=== PATIENT | male | born 1965 | race Caucasian/White ===

== ENCOUNTER → 2017-09-20 18:14 | Outpatient (REF) | payer MEDICARE, SELFPAY | LOC: LAB 18:14 | PROVIDERS: Visit Provider Urology | DX: N99.89 Other postprocedural complications and disorders of genitourinary system (principal) | CPT/HCPCS: 87086; 87088; 87186 ==

== ENCOUNTER → 2017-11-18 10:15 | Outpatient (CLI) | payer MEDICARE, SELFPAY ==
--- NOTE | 2017-11-18 10:23 | XR_ITS ---
XR KUB COMPARISON: KUB 10/19/2016 HISTORY: Known kidney stones TECHNIQUE: KUB FINDINGS: The solitary approximate 9 mm calculus is again seen overlying the midpole right kidney. A similar appearing trying shaped calculus measuring possibly 9 mm is seen overlying mid pole left kidney. Both of these are basically unchanged in size and overall appearance from previous exam. The bowel gas pattern is unremarkable. Again noted is mild dextroscoliotic curvature of the lumbar spine. IMPRESSION: Bilateral renal calculi basically stable and unchanged in size and location from previous exam
== END ==
PROVIDERS: PCP Family Medicine; Visit Provider Urology
DX: N20.0 Calculus of kidney (principal)
CPT/HCPCS: 74018

== ENCOUNTER → 2017-11-22 16:36 | Outpatient (REF) | payer MEDICARE, SELFPAY | LOC: LAB 16:36 | PROVIDERS: Visit Provider Urology | DX: N99.89 Other postprocedural complications and disorders of genitourinary system (principal) | CPT/HCPCS: 87086; 87088; 87186 ==

== ENCOUNTER → 2019-01-02 13:26 | Outpatient (CLI) | payer MEDICARE, SELFPAY ==
--- NOTE | 2019-01-02 13:39 | XR_ITS ---
XR KUB HISTORY: ITS.REASON: kidney stones ORDERING PHYSICIAN: Micheal Rowan MD PATIENT AGE: 53 years COMPARISON: 11/18/2017 FINDINGS: There are bilateral renal calculi present. There is an 11 mm stone overlying the lower pole the right kidney, a 15 mm stone overlying the upper pole the left kidney which is increased in size compared to the previous exam and a 4 mm stone overlying the lower pole the left kidney. No obvious ureteral calculi. There is lumbar curvature convex right. Mixed sclerotic/lucent areas present in the ilium on the left centrally unchanged IMPRESSION: Bilateral nephrolithiasis
== END ==
PROVIDERS: PCP Nurse Practitioner Family; Visit Provider Urology
DX: N20.0 Calculus of kidney (principal)
CPT/HCPCS: 74018; 87086; 87088; 87186

== ENCOUNTER → 2019-06-19 10:12 | Outpatient (CLI) | payer MEDICARE, SELFPAY ==
--- NOTE | 2019-06-19 10:18 | XR_ITS ---
PROCEDURE: XR KUB CLINICAL INDICATION: kidney stone COMPARISON: ABDPELW/O CT ABD PELVIS W/O CONTRAST from 10/29/2015 FINDINGS: There are bilateral renal calculi. There is a 10 mm stone overlying the mid aspect of the right kidney and a 12 mm stone overlying the upper pole of the left kidney. There is lumbar scoliosis convex right with degenerative changes in the lumbar spine and hips. There is a moderate amount of retained colonic feces. IMPRESSION: Bilateral nephrolithiasis Dictated by: Sree Page MD 06/19/2019 15:42 Electronically signed by Sree Page MD in [place] 06/19/2019 15:42
== END ==
PROVIDERS: PCP Family Medicine; Visit Provider Urology
DX: N20.0 Calculus of kidney (principal)
CPT/HCPCS: 74018; 87086

== ENCOUNTER → 2019-06-19 17:19 | Outpatient (CLI) | payer MEDICARE, SELFPAY | PROVIDERS: Visit Provider Urology | DX: N20.0 Calculus of kidney (principal) | CPT/HCPCS: 74018; 87086 ==

== ENCOUNTER → 2019-07-24 09:26 | Outpatient (CLI) | payer MEDICARE, SELFPAY ==
--- NOTE | 2019-07-24 09:33 | XR_ITS ---
PROCEDURE: XR KUB CLINICAL INDICATION: kidney stone COMPARISON: ABDPELW/O CT ABD PELVIS W/O CONTRAST from 10/29/2015 FINDINGS: Gas pattern-The bowel gas pattern is nonspecific. There is no bowel obstruction. Gas collection projects over the right inguinal region raising the question of aerated inguinal hernia. Air from infectious process in the soft tissues is not entirely excluded. There is some scleroses of the a right inferior pubic ramus with questionable chronic periosteal reaction. Dedicated pelvis exam could further evaluate. Chronic osteomyelitis or prior trauma could give this appearance. Multiple nonspecific radiolucencies are seen in the right acetabular region. There are pelvic calcifications bilaterally which are likely phleboliths. An ovoid 9 millimeter calcification overlying the right psoas muscle at the L3 level could represent a ureteral calculus.. No obvious renal calculi. IMPRESSION: Possible 9 millimeter right ureteral calculus. Nonspecific air collection in right inguinal region with some associated bony abnormalities. Follow-up should be considered. CT of the abdomen and pelvis may be useful for more definitive assessment. Dictated by: Vijay Martinez 07/24/2019 12:03 Electronically signed by Vijay Martinez in [place] 07/24/2019 12:03
== END ==
PROVIDERS: PCP Family Medicine; Visit Provider Urology
DX: N20.9 Urinary calculus, unspecified (principal)
CPT/HCPCS: 74018

== ENCOUNTER → 2020-01-10 12:16 | Outpatient (CLI) | payer MEDICARE, OTHER, SELFPAY ==
--- NOTE | 2020-01-10 12:25 | XR_ITS ---
PROCEDURE: XR KUB CLINICAL INDICATION: kidney stone COMPARISON: ABDPELW/O CT ABD PELVIS W/O CONTRAST from 10/29/2015 FINDINGS: There is a moderate amount of retained colonic feces which obscures the underlying kidneys. None the less, there is a calcification noted in the right mid abdominal region at 6 mm suggesting a renal stone. There are multiple pelvic calcifications including multiple small calcifications over the lower/central pelvic region which may be due to stones within the urinary bladder. There is lumbar scoliosis convex right. There is air density noted in the right inguinal region suggesting an inguinal hernia. IMPRESSION: 1. Right nephrolithiasis with multiple bladder stones suspected. 2. Constipation. 3. Right inguinal hernia Dictated by: Sree Page MD 01/10/2020 12:59 Electronically signed by Sree Page MD in [place] 01/10/2020 12:59
== END ==
PROVIDERS: PCP Family Medicine; Visit Provider Urology
DX: N20.0 Calculus of kidney (principal)
CPT/HCPCS: 74018

== ENCOUNTER → 2020-01-10 16:47 | Outpatient (CLI) | payer MEDICARE, SELFPAY | PROVIDERS: Visit Provider Urology | DX: N20.0 Calculus of kidney (principal) | CPT/HCPCS: 74018; 87086; 87088; 87186 ==

== ENCOUNTER → 2020-01-11 08:06 | Outpatient (CLI) | payer MEDICARE, SELFPAY ==
[2020-01-11 11:03] LABS: Coronavirus 19 IgG Antibody Negative (Negative); Coronavirus 19 IgM Antibody Negative (Negative)
== END ==
PROVIDERS: Visit Provider Urology
DX: Z01.818 Encounter for other preprocedural examination (principal); N20.0 Calculus of kidney; N31.9 Neuromuscular dysfunction of bladder, unspecified
CPT/HCPCS: 36415; 86328

== ENCOUNTER 2020-01-14 07:49 | Day surgery (SDC) | payer MEDICARE, SELFPAY ==
--- NOTE | 2020-01-10 13:56 | SUR.PREOP ---
01/10/2020 @ 4534--PHONE CALL MADE TO PATIENT. PATIENT UNDERSTANDS THAT LAB WORK AND COVID TESTING NEEDS TO BE COMPLETED @ 0800 ON 01/11/2020. PATIENT UNDERSTANDS IF LAB WORK AND COVID-19 TESTS ARE NOT COMPLETED BY 12PM ON THAT DATE, THE SURGERY SCHEDULED WILL BE CANCELLED AND RESCHEDULED FOR ANOTHER TIME.
[2020-01-11 10:36] VITALS: BMI 22.1
[2020-01-14 08:21] VITALS: BP 111/64; PULSE 66; RESP 18; TEMP 36.2; O2SAT 97
[2020-01-14 09:36] VITALS: BP 116/62; PULSE 66; RESP 18; TEMP 36.6; O2SAT 99
--- NOTE | 2020-01-14 13:29 | P.OP_ITS ---
Date of procedure: 01/14/20 Pre-op Diagnosis:: Difficulty catheterizing urethra/history of neurogenic bladder Post-op Diagnosis:: Neurogenic bladder/small bladder stones/no evidence of urethral stricture Procedure performed:: Cystoscopy with removal of small bladder stones Surgeon:: Darrell Velazquez MD Anesthesia: local Estimated blood loss (mL): 0 Clinical Note:: Patient is a 54-year-old white male with history of neurogenic bladder secondary to spinal cord injury 20 years ago. He catheterizes 4 times a day but states he has had some recent difficulty catheterizing in the sitting position. He can catheterize in the lying position. He states he has noticed some blood with catheterization recently. Operative findings:: No evidence of urethral stricture, bladder with diffuse trabeculation in the large capacity but no evidence of bladder tumor, prostate is not enlarged, several small bladder stones noted in the base of the bladder. Operative note:: Patient taken to the operating suite on the stretcher. He was prepped and draped in the standard surgical fashion on the stretcher in 2% lidocaine placed into the urethra and clamped. After 5 minutes the clamp removed and the flexible cystoscope introduced into the meatus. Passed in the bladder without difficulty. There is no evidence of urethral stricture prostate enlargement. The bladder showed some diffuse trabeculation and was noted to be of high capacity. There were a few small bladder stones in the base of the bladder. The ureteral orifices in their normal anatomic position with clear reflux of urine. A 1.9 Citizen [place] nitinol stone basket passed through the scope and 3 of the stones were removed with use of the basket. Several smaller 1 mm stones were left in. Scope then removed. We then set the patient up and I catheterized the patient myself in the sitting position and there is no evidence of any resistance and he was able to be catheterized without difficulty. I reassured him there is no evidence of any obstruction, blockage or stricture. We discussed trying to put the penis on the little stretch to straighten out the urethra. Recent urine culture showed 80-90,000 E. coli which was resistant to the Macrobid that was given last week. It is sensitive to the third-generation cephalosporins and a prescription for cefdinir given today. Condition: stable Disposition: same day Specimens:: Bladder stones Complications:: None
[2020-01-25 18:28] LABS: Ca oxalate dihydrate 80%; Composition SEE BELOW:; Specimen Type NOT PROVIDED
[2020-01-25 18:29] LABS: Photo TO FOLLOW
== END 2020-01-14 09:55 | disposition home or self-care (01) ==
LOC: OUTP 07:51
PROVIDERS: PCP Family Medicine; Visit Provider Urology
PROC: (CPT 52310; principal; 2020-01-14 09:00)
DX: N31.9 Neuromuscular dysfunction of bladder, unspecified (principal); N21.0 Calculus in bladder; Z88.1 Allergy status to other antibiotic agents; Z88.0 Allergy status to penicillin; Z91.018 Allergy to other foods; Z79.899 Other long term (current) drug therapy; Z90.49 Acquired absence of other specified parts of digestive tract
CPT/HCPCS: 52310; 82370

== ENCOUNTER → 2020-07-15 14:50 | Outpatient (CLI) | payer MEDICARE, SELFPAY | PROVIDERS: Visit Provider Urology | DX: N39.0 Urinary tract infection, site not specified (principal) | CPT/HCPCS: 87086; 87088; 87186 ==

== ENCOUNTER → 2020-08-01 16:00 | Outpatient (CLI) | payer MEDICARE, SELFPAY | PROVIDERS: Visit Provider Urology | DX: N20.9 Urinary calculus, unspecified (principal) | CPT/HCPCS: 87086; 87088; 87186 ==

== ENCOUNTER → 2020-08-05 11:21 | Outpatient (CLI) | payer MEDICARE, SELFPAY ==
--- NOTE | 2020-08-05 11:25 | XR_ITS ---
PROCEDURE: XR KUB CLINICAL INDICATION: kidney stone Follow-up kidney stone, flank pain COMPARISON: CT ABDPELW/O CT ABD PELVIS W/O CONTRAST from 10/29/2015 CR XR KUB from 01/10/2020 FINDINGS: Mild lumbar scoliosis convex right. Moderate amount of retained colonic feces. Postsurgical changes lower thoracic spine with inter pedicular screws at T11 and T10 there is a 5 mm calcific density to the right L3 and could be due to a stone within the lower pole of the right kidney IMPRESSION: As above, right nephrolithiasis Dictated by: Sree Page MD 08/05/2020 16:08 Sree Page MD in [place] 08/05/2020 16:08
== END ==
PROVIDERS: PCP Family Medicine; Visit Provider Urology
DX: N20.0 Calculus of kidney (principal)
CPT/HCPCS: 74018

== ENCOUNTER → 2020-08-07 09:53 | Outpatient (CLI) | payer MEDICARE, SELFPAY ==
--- NOTE | 2020-08-07 10:16 | HMH.PHACONS ---
- Pharmacy Consult Date: 08/07/20 Time: 10:17 Referring provider: DR. DENNY Reason for Consult:: TOBRAMYCIN CONSULT Allergies and ADEs:: Allergies Allergy/AdvReac Type Severity Reaction Status Date / Time ciprofloxacin Allergy Intermediate I-RASH Verified 08/05/20 12:01 floxacillin Allergy Intermediate I-RASH Verified 08/05/20 12:01 gentamicin [Gentamicin] Allergy Intermediate I-RASH Verified 08/05/20 12:01 ofloxacin Allergy Intermediate I-RASH Verified 08/05/20 12:01 COCONUT Allergy Intermediate I-RASH Uncoded 08/05/20 10:51 Home Medications:: Home Medications Medication Instructions Recorded Confirmed Type ascorbic acid (vitamin C) 500 mg 500 mg PO DAILY 09/20/17 08/05/20 History capsule clonazepam 1 mg tablet 1 mg PO QHS 09/20/17 08/05/20 History oxybutynin chloride 5 mg tablet 5 mg PO DAILY 09/20/17 08/05/20 History quetiapine 25 mg tablet 25 mg PO BID 09/20/17 08/05/20 History sertraline 100 mg tablet 150 mg PO Q24H 09/20/17 08/05/20 History trazodone 50 mg tablet 50 mg PO QHS PRN 09/20/17 08/05/20 History gabapentin 300 mg capsule 300 mg PO DAILY 07/18/18 08/05/20 History promethazine 25 mg tablet 25 mg PO Q6H PRN 07/18/18 08/05/20 History doxycycline hyclate 100 mg capsule 100 mg PO TID 06/19/19 08/05/20 History silver sulfadiazine 1 % topical 1 applic TOPICAL BID PRN 06/19/19 08/05/20 History cream Height: 1.7 m Weight: 59.24 kg Medical History: Reports:: Hypertension, Kidney Stones, Urinary Tract Infection Denies:: Cancer, Diabetes Mellitus Type 1, Diabetes Mellitus Type 2, Internal Pacemaker, MRSA, Seizures Assessment and Plan - Assessment and plan all Dx Assessment and Plan for all problems:: BASED ON PATIENT FACTORS, RECOMMEND TOBRAMYCIN 320MG IV EVERY 24 HOURS. WILL OBTAIN TOBRAMYCIN PEAK LEVEL ONE HOUR POST INFUSION AND ADJUST DOSE APPROPRIATE AT THAT POINT. PHARMACY WILL CONTINUE TO MONITOR. -RAJAN HUTSON PHARMD
[2020-08-07 10:32] LABS: Chloride 100 mmol/L (98-107)
[2020-08-07 10:33] LABS: Potassium 3.7 mmoL/L (3.5-5.1); Sodium 138 mmol/L (136-145)
[2020-08-07 10:35] LABS: Blood Urea Nitrogen 25 mg/dl (9-20); Estimated Glomerular Filt Rate 100 ml/min (>60); GFR (African American) 121 ML/MIN (>60)
[2020-08-07 10:36] LABS: Anion Gap 10.7 mEq/L (5-15); Calcium 9.3 mg/dl (8.4-10.2); Carbon Dioxide 31 mmol/L (22.0-30.0); Glucose 88 mg/dl (74-100)
[2020-08-07 10:50] VITALS: BP 136/78; PULSE 82; RESP 16; TEMP 36.8; O2SAT 98
[2020-08-07 13:20] VITALS: BP 167/89; PULSE 80; RESP 16; TEMP 36.8; O2SAT 98
[2020-08-07 14:08] LABS: Tobramycin,Peak 17.1 ug/ml (5.0-12.0)
== END ==
PROVIDERS: PCP Family Medicine; Visit Provider Urology
DX: N39.0 Urinary tract infection, site not specified (principal); N20.0 Calculus of kidney
CPT/HCPCS: 80048; 80200; 96365; G0463

== ENCOUNTER 2020-08-08 09:44 | Outpatient (CLI) | payer MEDICARE, SELFPAY ==
[2020-08-08 09:57] VITALS: BMI 20.5
[2020-08-08 10:31] LABS: Tobramycin,Trough 1.1 ug/ml (0-2.0)
--- NOTE | 2020-08-08 10:40 | PC.NURSE ---
V/S= 105/68 (SITTING, RT ARM), 73, 16, 97.7 AX
--- NOTE | 2020-08-08 10:41 | HMH.PHACONS ---
- Pharmacy Consult Date: 08/08/20 Time: 10:41 Referring provider: DR. DENNY Reason for Consult:: TOBRAMYCIN LEVELS Allergies and ADEs:: Allergies Allergy/AdvReac Type Severity Reaction Status Date / Time ciprofloxacin Allergy Intermediate I-RASH Verified 08/05/20 12:01 floxacillin Allergy Intermediate I-RASH Verified 08/05/20 12:01 gentamicin [Gentamicin] Allergy Intermediate I-RASH Verified 08/05/20 12:01 ofloxacin Allergy Intermediate I-RASH Verified 08/05/20 12:01 COCONUT Allergy Intermediate I-RASH Uncoded 08/05/20 10:51 Home Medications:: Home Medications Medication Instructions Recorded Confirmed Type ascorbic acid (vitamin C) 500 mg 500 mg PO DAILY 09/20/17 08/05/20 History capsule clonazepam 1 mg tablet 1 mg PO QHS 09/20/17 08/05/20 History oxybutynin chloride 5 mg tablet 5 mg PO DAILY 09/20/17 08/05/20 History quetiapine 25 mg tablet 25 mg PO BID 09/20/17 08/05/20 History sertraline 100 mg tablet 150 mg PO Q24H 09/20/17 08/05/20 History trazodone 50 mg tablet 50 mg PO QHS PRN 09/20/17 08/05/20 History gabapentin 300 mg capsule 300 mg PO DAILY 07/18/18 08/05/20 History promethazine 25 mg tablet 25 mg PO Q6H PRN 07/18/18 08/05/20 History doxycycline hyclate 100 mg capsule 100 mg PO TID 06/19/19 08/05/20 History silver sulfadiazine 1 % topical 1 applic TOPICAL BID PRN 06/19/19 08/05/20 History cream Height: 1.7 m Weight: 59.24 kg Laboratory Results:: Laboratory Results - last 24 hr 08/08/20 10:10: Tobramycin Trough 1.1 Medical History: Reports:: Hypertension, Kidney Stones, Urinary Tract Infection Denies:: Cancer, Diabetes Mellitus Type 1, Diabetes Mellitus Type 2, Internal Pacemaker, MRSA, Seizures Assessment and Plan - Assessment and plan all Dx Assessment and Plan for all problems:: TOBRAMYCIN PEAK LEVEL: 17.1 MCG/ML TOBRAMYCIN TROUGH LEVEL: 1.1 MCG/ML BASED ON LEVELS AND PATIENT FACTORS, RECOMMEND DECREASING PATIENT'S DOSE SLIGHTLY TO TOBRAMYCIN 300 MG IV Q24H. WILL CHECK ANOTHER TROUGH LEVEL ON TUESDAY.
[2020-08-08 11:03] VITALS: BP 105/68; PULSE 73; RESP 16; TEMP 36.5
== END 2020-08-08 11:55 | disposition home or self-care (01) ==
LOC: INF 09:45
PROVIDERS: PCP Family Medicine; Visit Provider Urology
DX: N39.0 Urinary tract infection, site not specified (principal)
CPT/HCPCS: 80200; 96365; 96372; 96374

== ENCOUNTER → 2020-08-09 09:12 | Outpatient (CLI) | payer MEDICARE, SELFPAY ==
[2020-08-09 09:35] VITALS: BP 95/78; PULSE 98; RESP 18; TEMP 36.4; O2SAT 96
--- NOTE | 2020-08-09 09:45 | PC.NURSE ---
IV ALREADY IN PLACE IN (L) AC, IV IS PATENT WITH GOOD BLOOD RETURN.
[2020-08-09 10:14] LABS: Coronavirus 19 IgG Antibody Negative (Negative); Coronavirus 19 IgM Antibody Negative (Negative)
== END ==
PROVIDERS: Visit Provider Urology
DX: N31.9 Neuromuscular dysfunction of bladder, unspecified (principal)
CPT/HCPCS: 36415; 86328

== ENCOUNTER → 2020-08-10 13:09 | Outpatient (CLI) | payer MEDICARE, SELFPAY ==
[2020-08-10 13:25] VITALS: BP 125/68; PULSE 79; RESP 14; TEMP 36.5; O2SAT 100; BMI 20.3
[2020-08-10 14:20] LABS: Tobramycin,Trough 0.7 ug/ml (0-2.0)
--- NOTE | 2020-08-10 14:29 | HMH.PHACONS ---
- Pharmacy Consult Date: 08/10/20 Time: 14:29 Referring provider: DR. DENNY Reason for Consult:: TOBRAMYCIN TROUGH LEVEL Allergies and ADEs:: Allergies Allergy/AdvReac Type Severity Reaction Status Date / Time ciprofloxacin Allergy Intermediate I-RASH Verified 08/05/20 12:01 floxacillin Allergy Intermediate I-RASH Verified 08/05/20 12:01 gentamicin [Gentamicin] Allergy Intermediate I-RASH Verified 08/05/20 12:01 ofloxacin Allergy Intermediate I-RASH Verified 08/05/20 12:01 COCONUT Allergy Intermediate I-RASH Uncoded 08/05/20 10:51 Home Medications:: Home Medications Medication Instructions Recorded Confirmed Type ascorbic acid (vitamin C) 500 mg 500 mg PO DAILY 09/20/17 08/05/20 History capsule clonazepam 1 mg tablet 1 mg PO QHS 09/20/17 08/05/20 History oxybutynin chloride 5 mg tablet 5 mg PO DAILY 09/20/17 08/05/20 History quetiapine 25 mg tablet 25 mg PO BID 09/20/17 08/05/20 History sertraline 100 mg tablet 150 mg PO Q24H 09/20/17 08/05/20 History trazodone 50 mg tablet 50 mg PO QHS PRN 09/20/17 08/05/20 History gabapentin 300 mg capsule 300 mg PO DAILY 07/18/18 08/05/20 History promethazine 25 mg tablet 25 mg PO Q6H PRN 07/18/18 08/05/20 History doxycycline hyclate 100 mg capsule 100 mg PO TID 06/19/19 08/05/20 History silver sulfadiazine 1 % topical 1 applic TOPICAL BID PRN 06/19/19 08/05/20 History cream Height: 1.7 m Weight: 58.967 kg Laboratory Results:: Laboratory Results - last 24 hr 08/10/20 13:34: Tobramycin Trough 0.7 Medical History: Reports:: Hypertension, Kidney Stones, Urinary Tract Infection Denies:: Cancer, Diabetes Mellitus Type 1, Diabetes Mellitus Type 2, Internal Pacemaker, MRSA, Seizures Assessment and Plan - Assessment and plan all Dx Assessment and Plan for all problems:: BASED ON TOBRAMYCIN TROUGH LEVEL OF 0.7 MCG/ML, RECOMMEND CONTINUING TOBRAMYCIN 300 MG IV Q24H. PHARMACY WILL CONTINUE TO MONITOR DAILY AND ADJUST APPROPRIATE.
[2020-08-10 15:50] VITALS: BP 114/66; PULSE 78; RESP 14; TEMP 36.4; O2SAT 99
== END ==
PROVIDERS: PCP Family Medicine; Visit Provider Urology
DX: N39.0 Urinary tract infection, site not specified (principal)
CPT/HCPCS: 80200; 96365

== ENCOUNTER 2020-08-11 08:02 | Day surgery (SDC) | payer MEDICARE, SELFPAY ==
[2020-08-05 11:54] VITALS: BMI 20.3
[2020-08-11 08:25] VITALS: BP 98/71; PULSE 78; RESP 16; TEMP 36.1; O2SAT 100
--- NOTE | 2020-08-11 08:31 | SUR.PREOP ---
IV in place in left forearm from monday 08/06
[2020-08-11 09:19] VITALS: BP 120/70; PULSE 77; RESP 18; TEMP 36.6; O2SAT 100
[2020-08-11 10:32] VITALS: BP 139/73; PULSE 82; RESP 18; TEMP 36.8; O2SAT 100
--- NOTE | 2020-08-11 10:40 | HMH.OPNOTE ---
Date of procedure: 08/11/20 Pre-op Diagnosis:: Recurring urinary tract infections/difficulty catheterizing/history of neurogenic bladder Post-op Diagnosis:: Neurogenic bladder/wide caliber urethral stenosis/small bladder stones Procedure performed:: Cystoscopy with urethral dilation and bladder irrigation Surgeon:: Darrell Velazquez MD Anesthesia: local Estimated blood loss (mL): 0 Clinical Note:: Patient is a 55-year-old white male with history of neurogenic bladder secondary to paraplegia has had persistent malodorous urine and recent urine culture shows a multi resistant urinary tract infection. He has also had some difficulty catheterizing and presents for cystoscopic evaluation to evaluate possible stricture disease and for source of recurrent UTIs Operative findings:: Patient with a wide caliber urethral narrowing as well as a small bladder stones, there is also a prominent ejaculatory duct could be causing some obstruction with catheterizing Operative note:: Patient taken to the cystoscopy suite after informed consent was obtained. On the stretcher he was prepped and draped in the standard surgical fashion and 2% lidocaine placed into the urethra. After 5 minutes the clamp was removed and the flexible cystoscope introduced into the urethral meatus. The scope was passed to the urethral bulb gnosis by the amount of stenosis there. There is also evidence of a prominent ejaculatory duct. The bladder was entered and examined in a systematic fashion. There was some mild diffuse trabeculation but no cellules or diverticula. There is no evidence of mucosal abnormalities. A few small bladder stones were present. The ureteral orifices in their normal anatomic position with clear reflux of urine. The cystoscope then removed and the urethra dilated with a 22 and 24 [place] Pete sounds. A 20 [place] coud? tip catheter then passed into the urethra and irrigation of the bladder was performed trying to remove the small bladder stones but we were unsuccessful. The catheter then removed. Patient tolerated the procedure well there are no complications. We discussed the findings today and he will return as scheduled. He does state that he is able to catheterize better using the coud? tip catheter and it is possible that the previous catheters were getting hung up on the underside of the ejaculatory duct. Condition: stable Disposition: same day Specimens:: None Complications:: None
== END 2020-08-11 10:32 | disposition home or self-care (01) ==
LOC: OUTP 08:03
PROVIDERS: PCP Family Medicine; Visit Provider Urology
PROC: 0TJB8ZZ Inspection of Bladder, Via Natural or Artificial Opening Endoscopic (ICD-10-PCS; CPT 52000; principal; 2020-08-11 08:30)
DX: N50.89 Other specified disorders of the male genital organs; N21.0 Calculus in bladder; Z87.440 Personal history of urinary (tract) infections; Z87.448 Personal history of other diseases of urinary system; G82.20 Paraplegia, unspecified; R82.998 Other abnormal findings in urine; I10 Essential (primary) hypertension; Z87.442 Personal history of urinary calculi; Z88.1 Allergy status to other antibiotic agents; Z79.899 Other long term (current) drug therapy
CPT/HCPCS: 52281

== ENCOUNTER 2020-08-12 10:09 | Outpatient (CLI) | payer MEDICARE, SELFPAY ==
[2020-08-12 10:20] VITALS: BP 117/73; PULSE 68; RESP 18; TEMP 36.6; O2SAT 98
[2020-08-12 10:42] VITALS: BP 111/76; PULSE 71; RESP 18; O2SAT 98
[2020-08-12 11:12] VITALS: BP 107/74; PULSE 69; RESP 18; O2SAT 97
[2020-08-12 11:42] VITALS: BP 119/78; PULSE 72; RESP 18; O2SAT 98
[2020-08-12 11:55] VITALS: BP 114/72; PULSE 67; RESP 18; O2SAT 98
== END 2020-08-12 11:55 | disposition home or self-care (01) ==
LOC: INF 10:09
PROVIDERS: Visit Provider Urology
DX: N39.0 Urinary tract infection, site not specified (principal)
CPT/HCPCS: 96365

== ENCOUNTER 2020-08-13 09:57 | Outpatient (CLI) | payer MEDICARE, SELFPAY ==
[2020-08-13 10:03] VITALS: BP 121/81; PULSE 94; RESP 20; TEMP 36.4; O2SAT 98
[2020-08-13 10:35] VITALS: BP 126/84; PULSE 94; RESP 20; O2SAT 99
[2020-08-13 11:05] VITALS: BP 120/86; PULSE 91; RESP 20; O2SAT 99
[2020-08-13 11:35] VITALS: BP 123/81; PULSE 90; RESP 20; O2SAT 98
[2020-08-13 11:48] VITALS: BP 121/56; PULSE 88; RESP 20; O2SAT 98
== END 2020-08-13 11:49 | disposition home or self-care (01) ==
LOC: INF 09:57
PROVIDERS: Visit Provider Urology
DX: N39.0 Urinary tract infection, site not specified (principal); N20.0 Calculus of kidney; N31.9 Neuromuscular dysfunction of bladder, unspecified
CPT/HCPCS: 96365

== ENCOUNTER → 2020-12-16 16:26 | Outpatient (CLI) | payer MEDICARE, SELFPAY | PROVIDERS: Visit Provider Urology | DX: N39.0 Urinary tract infection, site not specified (principal) | CPT/HCPCS: 87086; 87088; 87186 ==

== ENCOUNTER → 2021-02-24 15:52 | Outpatient (CLI) | payer MEDICARE, SELFPAY | PROVIDERS: Visit Provider Urology | DX: N39.0 Urinary tract infection, site not specified (principal) | CPT/HCPCS: 87086; 87088; 87186 ==

== ENCOUNTER → 2021-06-02 14:47 | Outpatient (CLI) | payer MEDICARE, SELFPAY | PROVIDERS: Visit Provider Urology | DX: N20.9 Urinary calculus, unspecified (principal) | CPT/HCPCS: 87086; 87088; 87186 ==

== ENCOUNTER → 2022-02-25 14:13 | Outpatient (CLI) | payer MEDICARE, SELFPAY | PROVIDERS: Visit Provider Urology | DX: N20.9 Urinary calculus, unspecified (principal); B96.29 Other Escherichia coli [E. coli] as the cause of diseases classified elsewhere | CPT/HCPCS: 87086; 87088; 87186 ==

== ENCOUNTER → 2022-03-26 13:36 | Outpatient (CLI) | payer OTHER, MEDICARE, SELFPAY ==
--- NOTE | 2022-03-26 13:47 | XR_ITS ---
FINAL REPORT CLINICAL HISTORY: hematuria COMPARISON: 01/10/2020 FINDINGS: A single view of the abdomen was obtained. There is a nonobstructive bowel gas pattern. There are no abnormally dilated loops of small bowel. There is a large amount of retained stool. There is a probable, 5 mm right renal stone, stable from prior exam. Dextroscoliosis and degenerative changes are noted of the spine. IMPRESSION: 1. Nonobstructive bowel gas pattern. 2. Large amount of retained stool. 3. Probable, right renal stone, stable. Reviewed, Interpreted and Dictated by Luigi Lu III, MD Transcribed by Anne Pedraza Authenticated and [facility]
== END ==
PROVIDERS: PCP Nurse Practitioner Family; Visit Provider Urology
DX: R31.9 Hematuria, unspecified (principal); N39.0 Urinary tract infection, site not specified; B95.2 Enterococcus as the cause of diseases classified elsewhere
CPT/HCPCS: 74018; 87086; 87088; 87186

== ENCOUNTER → 2022-03-26 16:17 | Outpatient (CLI) | payer MEDICARE, OTHER, SELFPAY | PROVIDERS: Visit Provider Urology | DX: N20.0 Calculus of kidney (principal) ==

== ENCOUNTER → 2022-03-31 08:49 | Outpatient (CLI) | payer MEDICARE, OTHER, SELFPAY ==
[2022-03-31 09:44] LABS: Albumin Level 3.7 g/dl (3.5-5.0); Chloride 106 mmol/L (98-107); Potassium 4.2 mmoL/L (3.5-5.1); Sodium 140 mmol/L (136-145)
[2022-03-31 09:46] LABS: Blood Urea Nitrogen 20 mg/dl (9-20); Estimated Glomerular Filt Rate 69 ml/min (>60); GFR (African American) 83 ML/MIN (>60)
[2022-03-31 09:47] LABS: Anion Gap 11.2 mEq/L (5-15); Calcium 8.9 mg/dl (8.4-10.2); Carbon Dioxide 27 mmol/L (22.0-30.0); Glucose 86 mg/dl (74-100); Phosphorous 3.5 mg/dl (2.5-4.5)
== END ==
PROVIDERS: PCP Nurse Practitioner Family; Visit Provider Nurse Practitioner Family
DX: N30.00 Acute cystitis without hematuria (principal)
CPT/HCPCS: 36415; 80069

== ENCOUNTER 2022-04-02 12:29 | Outpatient (CLI) | payer OTHER, MEDICARE, SELFPAY ==
[2022-04-02 12:29] VITALS: BMI 23.1
--- NOTE | 2022-04-02 13:15 | XR_ITS ---
FINAL REPORT CLINICAL HISTORY: PICC LINE placement FINDINGS: A single portable view of the chest was obtained. There is a left subclavian PICC line with tip in the mid SVC. The heart size and pulmonary vascularity are within normal limits. The mediastinum is within normal limits. No acute pulmonary abnormality is identified. There are postoperative changes of the thoracic spine with spinal rods. IMPRESSION: No active cardiopulmonary disease. Left subclavian PICC line with tip in the mid SVC. Reviewed, Interpreted and Dictated by Luigi Lu III, MD Transcribed by January Delacruz Authenticated and [facility]
[2022-04-02 13:50] VITALS: BP 119/69; PULSE 68; RESP 20; TEMP 36.9
[2022-04-02 14:55] VITALS: BP 122/76; PULSE 90; RESP 20; TEMP 36.9; O2SAT 95
--- NOTE | 2022-04-02 15:10 | HMH.PHACONS ---
- Pharmacy Consult Date: 04/02/22 Time: 15:10 Referring provider: DR. JOSEPH Reason for Consult:: TOBRAMYCIN DOSING Allergies and ADEs:: Allergies Allergy/AdvReac Type Severity Reaction Status Date / Time ciprofloxacin Allergy Intermediate I-RASH Verified 03/26/22 13:19 floxacillin Allergy Intermediate I-RASH Verified 03/26/22 13:19 gentamicin [Gentamicin] Allergy Intermediate I-RASH Verified 03/26/22 13:19 ofloxacin Allergy Intermediate I-RASH Verified 03/26/22 13:19 COCONUT Allergy Intermediate I-RASH Uncoded 03/26/22 13:19 Home Medications:: Home Medications Medication Instructions Recorded Confirmed Type ascorbic acid (vitamin C) 500 mg 500 mg PO DAILY 09/20/17 03/26/22 History capsule clonazepam 1 mg tablet 1 mg PO QHS 09/20/17 03/26/22 History oxybutynin chloride 5 mg tablet 5 mg PO DAILY 09/20/17 03/26/22 History quetiapine 25 mg tablet 25 mg PO BID 09/20/17 03/26/22 History sertraline 100 mg tablet 150 mg PO Q24H 09/20/17 03/26/22 History trazodone 50 mg tablet 50 mg PO QHS PRN 09/20/17 03/26/22 History gabapentin 300 mg capsule 300 mg PO DAILY 07/18/18 03/26/22 History promethazine 25 mg tablet 25 mg PO Q6H PRN 07/18/18 03/26/22 History doxycycline hyclate 100 mg capsule 100 mg PO TID 06/19/19 03/26/22 History silver sulfadiazine 1 % topical 1 applic TOPICAL BID PRN 06/19/19 03/26/22 History cream nitrofurantoin 100 mg PO BID 10 Days #20 cap 02/25/22 03/26/22 Rx monohydrate/macrocrystals 100 mg capsule cefdinir 300 mg capsule 300 mg PO BID #14 cap 03/19/22 03/26/22 Rx Height: 1.7 m Weight: 67.132 kg Medical History: Reports:: Hypertension, Kidney Stones, Renal Disease, Urinary Tract Infection Denies:: Cancer, Diabetes Mellitus Type 1, Diabetes Mellitus Type 2, Internal Pacemaker, MRSA, Seizures Assessment and Plan - Assessment and plan all Dx Assessment and Plan for all problems:: Age: 57 yo Serum creatinine: 1.1 mg/dL Height: 67.0 Inches Weight (kg): 67 Assessment: IBW (kg): 66.10 Dosing wt(kg): 66.1 Estimated Creatinine clearance (ml/min): 69.3 CRCL method: Cockcroft and Gault using ibw(default). Drug selected: Tobramycin Loading dose (mg): 0 Vd (liters): 19.8 (factor used: 0.3 L/kg) Elie (hr-1): 0.210 Half life (hrs): 3.30 Recommended dose: 320 mg Interval: 24 hrs Infusion time (hrs): 1 Predicted peak (mcg/mL): 14.7 Predicted trough (mcg/mL): 0.12 Recommendations: Give Tobramycin 320 mg q 24 hrs with an expected Cpeak of 14.7 mcg/ml and an expected Ctrough of 0.12 mcg/ml. TOBRAMYCIN PEAK TODAY AND TROUGH TOMORROW PRIOR TO DOSE. Thank you for the consult.
[2022-04-02 15:30] VITALS: BP 120/74; PULSE 68; RESP 20
[2022-04-02 16:30] VITALS: BP 118/74; PULSE 68
[2022-04-02 16:40] LABS: Anion Gap 11.6 mEq/L (5-15); Blood Urea Nitrogen 22 mg/dl (9-20); Calcium 8.7 mg/dl (8.4-10.2); Carbon Dioxide 25 mmol/L (22.0-30.0); Chloride 111 mmol/L (98-107); Creatinine Clearance Estimated 86 mL/min (50-200); Estimated Glomerular Filt Rate 87 ml/min (>60); GFR (African American) 105 ML/MIN (>60); Glucose 110 mg/dl (74-100); Potassium 4.6 mmoL/L (3.5-5.1); Sodium 143 mmol/L (136-145)
[2022-04-02 17:26] LABS: Tobramycin,Peak 19.4 ug/ml (5.0-12.0)
== END 2022-04-02 16:31 | disposition home or self-care (01) ==
LOC: INF 12:32
PROVIDERS: PCP Nurse Practitioner Family; Visit Provider Family Medicine
DX: Z45.2 Encounter for adjustment and management of vascular access device; N30.00 Acute cystitis without hematuria
CPT/HCPCS: 36410; 36569; 71045; 80048; 80200; 96365; C1751

== ENCOUNTER → 2022-04-03 13:00 | Outpatient (CLI) | payer OTHER, MEDICARE, SELFPAY ==
[2022-04-03 13:23] VITALS: BP 152/75; PULSE 73; RESP 20; TEMP 36.9; O2SAT 99
[2022-04-03 13:43] LABS: Tobramycin,Trough 1.4 ug/ml (0-2.0)
== END ==
PROVIDERS: Family Medicine; PCP Nurse Practitioner Family; Visit Provider Nurse Practitioner Family
DX: N39.0 Urinary tract infection, site not specified (principal)
CPT/HCPCS: 80200; 96365; G0463

== ENCOUNTER → 2022-04-04 13:15 | Outpatient (CLI) | payer OTHER, MEDICARE, SELFPAY ==
[2022-04-04 15:05] VITALS: BP 142/72; PULSE 79; RESP 18; O2SAT 100
[2022-04-04 15:10] VITALS: BP 142/72; PULSE 79; RESP 18; O2SAT 100
== END ==
PROVIDERS: PCP Nurse Practitioner Family; Visit Provider Nurse Practitioner Family
DX: N39.0 Urinary tract infection, site not specified (principal); Z45.2 Encounter for adjustment and management of vascular access device
CPT/HCPCS: 96365

== ENCOUNTER 2022-04-05 12:42 | Outpatient (CLI) | payer OTHER, MEDICARE, SELFPAY ==
[2022-04-05 12:51] VITALS: BMI 21.8
[2022-04-05 13:21] VITALS: BP 123/72; PULSE 73; RESP 18; TEMP 36.3; O2SAT 100
[2022-04-05 14:15] VITALS: BP 110/68; PULSE 72; RESP 18; O2SAT 98
== END 2022-04-05 14:15 | disposition home or self-care (01) ==
LOC: INF 12:43
PROVIDERS: PCP Nurse Practitioner Family; Visit Provider Nurse Practitioner Family
DX: B95.2 Enterococcus as the cause of diseases classified elsewhere (principal); N30.00 Acute cystitis without hematuria; Z45.2 Encounter for adjustment and management of vascular access device
CPT/HCPCS: 96365

== ENCOUNTER 2022-04-06 12:56 | Outpatient (CLI) | payer OTHER, MEDICARE, SELFPAY ==
[2022-04-06 13:05] VITALS: BMI 22.2
[2022-04-06 13:27] LABS: Anion Gap 10.2 mEq/L (5-15); Blood Urea Nitrogen 14 mg/dl (9-20); Calcium 8.5 mg/dl (8.4-10.2); Carbon Dioxide 27 mmol/L (22.0-30.0); Chloride 108 mmol/L (98-107); Creatinine Clearance Estimated 80 mL/min (50-200); Estimated Glomerular Filt Rate 87 ml/min (>60); GFR (African American) 105 ML/MIN (>60); Glucose 103 mg/dl (74-100); Potassium 4.2 mmoL/L (3.5-5.1); Sodium 141 mmol/L (136-145)
[2022-04-06 13:32] LABS: Tobramycin,Trough 1.6 ug/ml (0-2.0)
--- NOTE | 2022-04-06 13:51 | HMH.PHACONS ---
- Pharmacy Consult Date: 04/06/22 Time: 13:52 Referring provider: DR. JOSEPH Reason for Consult:: TOBRAMYCIN TROUGH AND DOSE CHANGE Allergies and ADEs:: Allergies Allergy/AdvReac Type Severity Reaction Status Date / Time ciprofloxacin Allergy Intermediate I-RASH Verified 03/26/22 13:19 floxacillin Allergy Intermediate I-RASH Verified 03/26/22 13:19 gentamicin [Gentamicin] Allergy Intermediate I-RASH Verified 03/26/22 13:19 ofloxacin Allergy Intermediate I-RASH Verified 03/26/22 13:19 COCONUT Allergy Intermediate I-RASH Uncoded 03/26/22 13:19 Home Medications:: Home Medications Medication Instructions Recorded Confirmed Type ascorbic acid (vitamin C) 500 mg 500 mg PO DAILY 09/20/17 04/05/22 History capsule clonazepam 1 mg tablet 1 mg PO QHS 09/20/17 04/05/22 History oxybutynin chloride 5 mg tablet 5 mg PO DAILY 09/20/17 04/05/22 History quetiapine 25 mg tablet 25 mg PO BID 09/20/17 04/05/22 History sertraline 100 mg tablet 150 mg PO Q24H 09/20/17 04/05/22 History trazodone 50 mg tablet 50 mg PO QHS PRN 09/20/17 03/26/22 History gabapentin 300 mg capsule 300 mg PO DAILY 07/18/18 04/05/22 History promethazine 25 mg tablet 25 mg PO Q6H PRN 07/18/18 03/26/22 History doxycycline hyclate 100 mg capsule 100 mg PO TID 06/19/19 04/05/22 History silver sulfadiazine 1 % topical 1 applic TOPICAL BID PRN 06/19/19 03/26/22 History cream Cefdinir [Omnicef 300mg Capsule] 300 mg PO BID 04/05/22 04/05/22 History Nitrofurantoin Monohyd/M-Cryst 100 mg PO BID 04/05/22 04/05/22 History [Nitrofurantoin [place]-Mcr 100 mg] Height: 1.68 m Weight: 62.596 kg Laboratory Results:: Laboratory Results - last 24 hr 04/06/22 13:15: Sodium 141, Potassium 4.2, Chloride 108 H, Carbon Dioxide 27, Anion Gap 10.2, BUN 14, Creatinine 0.90, Estimated Creat Clear 80, Estimated GFR 87, Est GFR ( Amer) 105, Glucose 103 H, Calcium 8.5 04/06/22 13:15: Tobramycin Trough 1.6 Medical History: Reports:: Hypertension, Kidney Stones, Renal Disease, Urinary Tract Infection Denies:: Cancer, Diabetes Mellitus Type 1, Diabetes Mellitus Type 2, Internal Pacemaker, MRSA, Seizures Assessment and Plan - Assessment and plan all Dx Assessment and Plan for all problems:: Pharmacokinetic dosing service Objective: Patient: Floor: Age: 57 yo Serum creatinine: 0.90 mg/dL Height: 66.1 Inches Weight (kg): 62.6 Assessment: IBW (kg): 64.03 Dosing wt(kg): 62.6 Estimated Creatinine clearance (ml/min): 80.2 CRCL method: Cockcroft and Gault using ibw(default). Drug selected: Tobramycin Loading dose (mg): 0 Vd (liters): 18.8 (factor used: 0.3 L/kg) Elie (hr-1): 0.249 Half life (hrs): 2.78 Recommended dose: 300 mg Interval: 24 hrs Infusion time (hrs): 1 Predicted peak (mcg/mL): 14.2 Predicted trough (mcg/mL): 0.05 Recommendations: Give Tobramycin 300 mg q 24 hrs with an expected Cpeak of 14.2 mcg/ml and an expected Ctrough of 0.05 mcg/ml Thank you for the consult, will continue to follow. -RAJAN HUTSON, LUKED
[2022-04-06 14:10] VITALS: BP 128/64; PULSE 83; RESP 18; TEMP 36.4; O2SAT 98
[2022-04-06 15:03] VITALS: BP 118/74; PULSE 77; RESP 18; O2SAT 98
== END 2022-04-06 15:04 | disposition home or self-care (01) ==
LOC: INF 12:57
PROVIDERS: PCP Nurse Practitioner Family; Visit Provider Nurse Practitioner Family
DX: N30.00 Acute cystitis without hematuria (principal); B95.2 Enterococcus as the cause of diseases classified elsewhere; Z45.2 Encounter for adjustment and management of vascular access device; Z51.81 Encounter for therapeutic drug level monitoring
CPT/HCPCS: 80048; 80200; 96365

== ENCOUNTER 2022-04-07 12:59 | Outpatient (CLI) | payer OTHER, MEDICARE, SELFPAY ==
[2022-04-07 13:16] VITALS: BP 124/76; PULSE 68; RESP 18; TEMP 36.4; O2SAT 99
[2022-04-07 14:30] VITALS: BP 136/72; PULSE 71; RESP 18; O2SAT 99
== END 2022-04-07 14:35 | disposition home or self-care (01) ==
LOC: INF 13:00
PROVIDERS: PCP Nurse Practitioner Family; Visit Provider Family Medicine
DX: N30.00 Acute cystitis without hematuria (principal); B95.2 Enterococcus as the cause of diseases classified elsewhere; Z45.2 Encounter for adjustment and management of vascular access device
CPT/HCPCS: 96365

== ENCOUNTER 2022-04-08 12:50 | Outpatient (CLI) | payer OTHER, MEDICARE, SELFPAY ==
[2022-04-08 13:10] VITALS: BP 123/67; PULSE 88; RESP 18; O2SAT 100
[2022-04-08 14:10] VITALS: BP 126/75; PULSE 88; RESP 18
== END 2022-04-08 14:24 | disposition home or self-care (01) ==
LOC: INF 12:51
PROVIDERS: PCP Nurse Practitioner Family; Visit Provider Family Medicine
DX: N30.00 Acute cystitis without hematuria (principal); B95.2 Enterococcus as the cause of diseases classified elsewhere; Z45.2 Encounter for adjustment and management of vascular access device
CPT/HCPCS: 96365

== ENCOUNTER 2022-04-09 11:24 | Outpatient (CLI) | payer OTHER, MEDICARE, SELFPAY ==
[2022-04-09 11:52] VITALS: BP 133/68; PULSE 80; RESP 18; O2SAT 98
[2022-04-09 13:00] VITALS: BP 130/83; PULSE 90; RESP 18; O2SAT 99
== END 2022-04-09 13:00 | disposition home or self-care (01) ==
LOC: INF 11:25
PROVIDERS: PCP Family Medicine; Visit Provider Family Medicine
DX: N30.00 Acute cystitis without hematuria (principal); B95.2 Enterococcus as the cause of diseases classified elsewhere; Z45.2 Encounter for adjustment and management of vascular access device
CPT/HCPCS: 96365

== ENCOUNTER 2022-04-10 11:07 | Outpatient (CLI) | payer OTHER, MEDICARE, SELFPAY | END 2022-04-10 13:05 | disposition home or self-care (01) | LOC: INF 11:08 | PROVIDERS: PCP Family Medicine; Visit Provider Family Medicine | DX: N30.00 Acute cystitis without hematuria (principal); B95.2 Enterococcus as the cause of diseases classified elsewhere; Z45.2 Encounter for adjustment and management of vascular access device | CPT/HCPCS: 96365 ==

== ENCOUNTER 2022-04-11 13:31 | Outpatient (CLI) | payer OTHER, MEDICARE, SELFPAY ==
[2022-04-11 13:45] VITALS: BMI 21.8
[2022-04-11 13:56] VITALS: BP 117/54; PULSE 69; RESP 18; O2SAT 100
--- NOTE | 2022-04-11 15:05 | PC.NURSE ---
Pt had requested that picc be removed. I explained that he was supposed to see his MD on Tuesday and he would decide then what to do. He verbalized understanding.
== END 2022-04-11 14:52 | disposition home or self-care (01) ==
LOC: INF 13:32
PROVIDERS: PCP Nurse Practitioner Family; Visit Provider Family Medicine
DX: N30.00 Acute cystitis without hematuria (principal); B95.2 Enterococcus as the cause of diseases classified elsewhere; Z45.2 Encounter for adjustment and management of vascular access device
CPT/HCPCS: 96365

== ENCOUNTER 2022-04-16 12:08 | Outpatient (CLI) | payer OTHER, MEDICARE, SELFPAY | END 2022-04-16 12:45 | disposition home or self-care (01) | LOC: INF 12:10 | PROVIDERS: PCP Nurse Practitioner Family; Visit Provider Family Medicine | DX: N30.00 Acute cystitis without hematuria (principal); Z45.2 Encounter for adjustment and management of vascular access device | CPT/HCPCS: 96523 ==

== ENCOUNTER → 2022-04-20 11:19 | Outpatient (CLI) | payer OTHER, MEDICARE, SELFPAY ==
[2022-04-20 11:57] VITALS: BP 101/67; PULSE 96; RESP 16; TEMP 36.4; O2SAT 98
== END ==
PROVIDERS: PCP Nurse Practitioner Family; Visit Provider Family Medicine
DX: Z45.2 Encounter for adjustment and management of vascular access device (principal); N39.0 Urinary tract infection, site not specified
CPT/HCPCS: G0463

== ENCOUNTER → 2022-11-25 10:19 | Outpatient (CLI) | payer OTHER, MEDICARE, SELFPAY ==
[2022-11-25 11:15] LABS: Basophils % 0.1 % (0.1-2.0); Eosinophils # 0.1 K/mm3 (0.0-0.4); Eosinophils % 1.4 % (0.1-12.0); Hematocrit 24.4 % (42.0-52.0); Hemoglobin 7.5 g/dL (14.1-18.0); Lymphocytes # 0.9 K/mm3 (0.7-4.5); Lymphocytes % 9.7 % (10-50); Mean Corpuscular HGB Conc 30.7 g/dL (31.8-35.4); Mean Corpuscular Hemoglobin 22.7 pg (27.0-31.2); Mean Corpuscular Volume 73.7 fl (80-94); Mean Platelet Volume 8.1 fl (7.4-10.4); Monocytes # 0.4 K/mm3 (0.1-1.0); Monocytes % 4.7 % (1.7-9.3); Neutrophils # 7.9 K/mm3 (1.8-7.8); Platelet Count 320 K/mm3 (142-424); Red Blood Count 3.31 M/mm3 (4.60-6.20); Red Cell Distribution Width 17.8 % (11.5-17.5); White Blood Count 9.4 K/mm3 (4.8-10.8)
[2022-11-25 11:23] LABS: Alanine Aminotransferase 29 U/L (12-78); Albumin Level 2.6 g/dl (3.5-5.0); Albumin/Globulin Ratio 0.7 (1.1-1.8); Alkaline Phosphatase 209 U/L (38-126); Anion Gap 8.1 mEq/L (5-15); Aspartate Amino Transferase 75 U/L (17-59); Bilirubin,Total 0.3 mg/dl (0.2-1.3); Blood Urea Nitrogen 18 mg/dl (9-20); Calcium 7.6 mg/dl (8.4-10.2); Carbon Dioxide 29 mmol/L (22.0-30.0); Chloride 101 mmol/L (98-107); Estimated Glomerular Filt Rate 69 ml/min (>60); GFR (African American) 83 ML/MIN (>60); Globulin 3.6 g/dL (1.3-3.2); Glucose 126 mg/dl (74-100); Potassium 4.1 mmoL/L (3.5-5.1); Sodium 134 mmol/L (136-145); Total Protein,Serum 6.2 g/dl (6.3-8.2)
== END ==
PROVIDERS: PCP Nurse Practitioner Family; Visit Provider Internal Medicine Infectious Disease
DX: L03.312 Cellulitis of back [any part except buttock and flank] (principal); M86.68 Other chronic osteomyelitis, other site; L89.313 Pressure ulcer of right buttock, stage 3; L89.224 Pressure ulcer of left hip, stage 4; L89.212 Pressure ulcer of right hip, stage 2
CPT/HCPCS: 36415; 80053; 85025

== ENCOUNTER → 2022-12-06 10:03 | Outpatient (CLI) | payer OTHER, MEDICARE, SELFPAY ==
[2022-12-06 11:35] LABS: Eosinophils # 0.1 K/mm3 (0.0-0.4); Eosinophils % 0.4 % (0.1-12.0); Hematocrit 25.5 % (42.0-52.0); Hemoglobin 7.6 g/dL (14.1-18.0); Lymphocytes # 0.7 K/mm3 (0.7-4.5); Lymphocytes % 4.2 % (10-50); Mean Corpuscular HGB Conc 29.7 g/dL (31.8-35.4); Mean Corpuscular Hemoglobin 22.1 pg (27.0-31.2); Mean Corpuscular Volume 74.5 fl (80-94); Monocytes # 0.7 K/mm3 (0.1-1.0); Monocytes % 4.2 % (1.7-9.3); Neutrophils # 14.4 K/mm3 (1.8-7.8); Neutrophils % 91.1 % (37.0-80.0); Platelet Count 512 K/mm3 (142-424); Red Blood Count 3.42 M/mm3 (4.60-6.20); White Blood Count 15.8 K/mm3 (4.8-10.8)
[2022-12-06 11:40] LABS: MANUAL DIFFERENTIAL MANUAL DIFFERENTIAL (MANUAL DIFF)
[2022-12-06 11:58] LABS: Lymphocytes % 6 % (10-50); Monocytes % 6 % (2-9); Neutrophils % 88 % (42-76); Total Cells Counted 100
[2022-12-06 11:59] LABS: Anisocytosis 1+; Hypochromasia 1+; Ovalocytes 1+; Platelet Estimate Slight Increase
== END ==
PROVIDERS: PCP Nurse Practitioner Family; Visit Provider Internal Medicine Infectious Disease
DX: L89.313 Pressure ulcer of right buttock, stage 3 (principal); L89.224 Pressure ulcer of left hip, stage 4
CPT/HCPCS: 36415; 85007; 85025